=== PATIENT | male | born 1945 | race Caucasian/White ===

== ENCOUNTER 2017-02-15 13:44 | Outpatient (CLI) | payer MEDICARE | END 2017-02-15 13:45 | disposition critical access hospital (66) | LOC: EMS 13:44 | PROVIDERS: ATTEND Surgery | DX: R53.1 Weakness (principal) | CPT/HCPCS: A0425; A0429 ==

== ENCOUNTER 2017-02-15 14:08 | Emergency (ER) | payer MEDICARE ==
[2017-02-15] MEDS ORDERED: SODIUM CHLORIDE 0.9% 1,000 ML IV ONE (14:45)
--- NOTE | 2017-02-15 14:51 | ED Physician Documentation ---
PD HPI ALTERED MENTAL STATUS - Stated complaint Stated Complaint: HUNGRY - Chief complaint Chief Complaint: General - History obtained from History obtained from: Patient, Family, EMS - History of Present Illness Timing - onset: How many months ago (brother says the patient has been living in an RV parked [place] [employer] and getting meals at the [employer] but other lemon has not had water hookup nor septic in the RV. The patient has history of some dementia/ poor selfcare/ poor intake-nutrition. Brother says the patient has lost about 20 lbs in the past 1-2 months. Brother had been talking with [facility] and was set up to have [facility] to the [facility] for an [facility] for assisted living or SNF care, depending on need. The coordinator arrived at patient's RV and the place was in poor condition, with the patient lying in feces, unkempt, and poor conditions. Brother called 911 and patient brought here. Patient seen for similar though not as unkempt, at [facility] 12/31/16 and had labs/CT head/CXR without specific findings. BP was elevated and patient instructed to take usual meds and had new Rx for BP med. Brother says the meds at patient RV are still full, so patient has not been taking his medications.) Timing - duration: Weeks, Months Timing - details: Gradual onset, Waxing and waning Quality / character: Confused. No: Agitated, Combative Associated symptoms: NVD (lots of feces in the RV, so apparently the patient has had some diarrhea/loose stools.), General weakness. No: Fever, Focal weakness Contributing factors: Known dementia (reportedly by brother, though patient still makes own decisions (No POA has been sought by brother).). No: Anticoagulated, Diabetic, Recent med change, Recent illness Basline status: Ambulatory, Disoriented Treatment JUNIOR HIGH MATH TEACHER: Accucheck Similar symptoms before: No diagnosis Recently seen: Emergency Dept (end of December in [facility] ER.) Review of Systems Unable to obtain: Confused, Dementia, Other (some info from brother) Constitutional: reports: Weight Loss. denies: Fever Nose: denies: Rhinorrhea / runny nose, Congestion Throat: denies: Sore throat Cardiac: denies: Chest pain / pressure Respiratory: denies: Cough GI: denies: Abdominal Pain, Vomiting, Diarrhea (but has had a lot of stools recently), Bloody / black stool : denies: Dysuria, Incontinent Skin: denies: Laceration (s) Neurologic: denies: Headache, Head injury Psychiatric: denies: Depressed Endocrine: reports: Weight loss. denies: Easy bruising / bleeding Immunocompromised: denies: Immunocompromised PD PAST MEDICAL HISTORY - Past Medical History Cardiovascular: Hypertension Other Past Medical History: chronic back pain - Past Surgical History Past Surgical History: No - Present Medications Home Medications: Ambulatory Orders Medication Instructions Recorded Confirmed Aspirin Chewable [St Skyler 1 tab PO DAILY 02/15/17 02/15/17 Aspirin] Levothyroxine Sodium [Synthroid] 1 tab PO DAILY 02/15/17 02/15/17 Propranolol HCl 1 tab PO BID 02/15/17 02/15/17 Simvastatin 1 tab PO DAILY 02/15/17 02/15/17 - Allergies Allergies/Adverse Reactions: Allergies Allergy/AdvReac Type Severity Reaction Status Date / Time Unable to Assess Allergy Verified 02/15/17 14:16 - Social History Does the pt smoke?: No Smoking Status: Never smoker Does the pt drink ETOH?: Yes Does the pt have substance abuse?: Yes Substance Use and Type: Marijuana - Family History Family history: reports: Non contributory PD ED PE NORMAL - Vitals Vital signs reviewed: Yes - General General: No acute distress. No: Well developed/nourished (somewhat thin; appears frail; unkempt with long hair/vallecillo and not combed nor washed. Dirty fingernails. ) - HEENT HEENT: Ears normal, Pharynx benign. No: Moist mucous membranes (slightly dry) - Neck Neck: Supple, no meningeal sign, No adenopathy, No JVD - Cardiac Cardiac: RRR, No murmur - Respiratory Respiratory: Clear bilaterally - Abdomen Abdomen: Normal bowel sounds, Soft, Non tender, Non distended - Back Back: No CVA TTP - Derm Derm: Normal color, Warm and dry - Extremities Extremities: Normal ROM s pain, No edema, No calf tenderness / cord - Neuro Neuro: radio installer automobile 2-12 intact, No motor deficit, No sensory deficit. No: Alert and oriented X 3 (oriented to person and place, not time. Poor short term memory. He is not able to describe what he has eaten lately. ) - Psych Psych: Normal mood Results - Vitals Vitals: Vital Signs - 24 hr 02/15/17 02/15/17 02/15/17 14:10 16:06 16:10 Temperature 36.9 C Heart Rate 102 H 88 74 Respiratory 20 18 Rate Blood Pressure 218/116 H 160/82 H 167/89 H O2 Saturation 99 99 Oxygen O2 Source Room air - Labs Labs: Laboratory Tests 02/15/17 02/15/17 02/15/17 15:10 15:10 15:10 WBC 10.9 H RBC 5.81 Hgb 16.6 Hct 48.3 MCV 83.2 MCH 28.5 MCHC 34.3 RDW 13.4 Plt Count 344 MPV 8.2 Neut # 9.4 H Lymph # 0.7 L [place] # 0.7 Eos # 0.0 Baso # 0.0 Absolute Nucleated RBC 0.01 Nucleated RBCs 0.1 Sodium 143 Potassium 3.8 Chloride 99 L Carbon Dioxide 29 Anion Gap 15.0 H BUN 33 H Creatinine 1.0 Estimated GFR (MDRD) 74 L Glucose 137 H Calcium 9.9 Magnesium 2.2 Total Bilirubin 1.9 H AST 24 ALT 23 Alkaline Phosphatase 91 Total Protein 9.1 H Albumin 3.9 Globulin 5.2 H Albumin/Globulin Ratio 0.8 L Lipase 23 Vitamin B12 675 TSH 3.40 Ethyl Alcohol < 5.0 - Rads (name of study) head CT Radiology: Prelim report reviewed (age-related changes without acute process) chest Radiology: Prelim report reviewed (no acute infiltrates/changes. ) PD MEDICAL DECISION MAKING - ED course Complexity details: reviewed old records, re-evaluated patient (The patient is awake and alert and conversant. He does have poor short-term memory and cannot really express how he does his ADLs. He does need assistance with care but does not seem to be in delirium. Basic lab tests as well as chest x-ray and head CT are normal. The ER report from [facility] end of December has similar findings. The blood pressure was elevated here as it was back then and seems likely related to lack of compliance with his medications. [facility] with the [facility] [place] and they were not accepting transfers as they were full on capacity. As such we will need to have the patient stay here in the emergency department presumed to fully until tomorrow when the VA coordinator in the VA system can be better accessed for placement. The patient's brother said he was not set up for bringing the patient home with him for even tonight.), considered differential, d/w patient, d/w family (brother - His brother says he has been in communication with the [facility] outpatient coordinator for the [facility]. She was to take the patient down to the [facility] for evaluation for placement today and other assistance. However because of the weekend apparent state, 911 was called and he came here instead. The brother says the patient has been failing for several months at least and this seems to be the worst he has been with more recent weight loss and incapacity for taking care of himself with meals and grooming and even bathroom skills. The patient apparently needs assistance with placement.) Departure - Departure Clinical Impression: Self-care deficit in patient living alone, Poor compliance with medication Dementia Qualifiers: Dementia type: unspecified type Dementia behavioral disturbance: without behavioral disturbance Qualified Code(s): F03.90 - Unspecified dementia without behavioral disturbance Hypertension Qualifiers: Hypertension type: unspecified secondary hypertension Qualified Code(s): I15.9 - Secondary hypertension, unspecified; I15 - Secondary hypertension Condition: Stable Record reviewed to determine appropriate education?: Yes
[2017-02-15 15:25] LABS: BASOPHILS % (AUTO) 0.4 %; EOSINOPHILS % (AUTO) 0.2 %; HCT - HEMATOCRIT 48.3 % (42.0-52.0); HGB - HEMOGLOBIN 16.6 g/dL (14.0-18.0); LYMPHOCYTES # (AUTO) 0.7 10^3/uL (1.5-3.5); LYMPHOCYTES % (AUTO) 6.4 %; MEAN CORPUSCULAR HEMOGLOBIN 28.5 pg (27.0-31.0); MEAN CORPUSCULAR HGB CONC 34.3 g/dL (32.0-36.0); MEAN CORPUSCULAR VOLUME 83.2 fL (80.0-94.0); MEAN PLATELET VOLUME 8.2 fL (7.4-11.4); MONOCYTES # (AUTO) 0.7 10^3/uL (0.0-1.0); MONOCYTES % (AUTO) 6.1 %; NEUTROPHILS # (AUTO) 9.4 10^3/uL (1.5-6.6); NEUTROPHILS % (AUTO) 86.9 %; NUCLEATED RED BLOOD CELLS AUTO 0.1 /100WBC; RED BLOOD COUNT 5.81 10^6/uL (4.70-6.10); RED CELL DISTRIBUTION WIDTH 13.4 % (12.0-15.0); UNCORRECTED WHITE BLOOD COUNT 10.9 x10^3/uL; WHITE BLOOD COUNT 10.9 x10^3/uL (4.8-10.8)
[2017-02-15 15:41] LABS: ALBUMIN/GLOBULIN RATIO 0.8 (1.0-2.2); BILIRUBIN,TOTAL 1.9 mg/dL (0.2-1.0); BUN - BLOOD UREA NITROGEN 33 mg/dL (6-20); CALCIUM 9.9 mg/dL (8.5-10.3); CARBON DIOXIDE - CO2 29 mmol/L (21-32); CHLORIDE 99 mmol/L (101-111); GFR - MDRD 74 (>89); GLUCOSE 137 mg/dL (70-100); LIPASE 23 U/L (22-51); MAGNESIUM 2.2 mg/dL (1.7-2.8); POTASSIUM 3.8 mmol/L (3.5-5.0); SODIUM 143 mmol/L (135-145); TOTAL PROTEIN 9.1 g/dL (6.7-8.2)
[2017-02-15] MEDS ORDERED: METOPROLOL 5 MG/5 ML VIAL IVP STA (15:49)
--- NOTE | 2017-02-15 15:58 | CT Preliminary Report ---
Exam: CT Head W/O IMPRESSION: Generalized age-related cortical atrophic changes without evidence of acute intracranial abnormality. [facility] SITE ID: [id number]
--- NOTE | 2017-02-15 16:04 | XRAY Preliminary Report ---
Exam: XR Chest 1 View IMPRESSION: Normal single view chest. [facility] SITE ID: [id number]
[2017-02-15] MEDS: SODIUM CHLORIDE 0.9% 1,000 ML IV ONE ×2 (16:06→16:57)
--- NOTE | 2017-02-15 16:06 | CT Report ---
EXAM: CT HEAD EXAM DATE: 02/15/2017 03:29 PM. CLINICAL HISTORY: Confusion/weakness. COMPARISON: None. TECHNIQUE: Multiaxial CT images were obtained from the foramen magnum to the vertex. IV contrast: Non e. Reformats: Coronal. In accordance with CT protocol optimization, one or more of the following dose reduction techniques w ere utilized for this exam: automated exposure control, adjustment of mA and/or KV based on patient s ize, or use of iterative reconstructive technique. FINDINGS: Parenchyma: No intraparenchymal hemorrhage. No evidence of mass, midline shift, or CT findings of acu te infarction. Mccormack-white differentiation is distinct. Extraaxial Spaces: Normal for age. No subdural or epidural collections identified. Ventricles: The ventricles and cortical sulci are enlarged, consistent with age-related tissue loss. Sinuses: Imaged paranasal sinuses, orbits, and mastoids show no significant abnormality. Bones: No evidence of fracture or calvarial defect. Other: Diffuse chronic microangiopathic white matter changes are evident. IMPRESSION: Generalized age-related cortical atrophic changes without evidence of acute intracranial abnormality. [facility] Referring Provider Line: [phone] SITE ID: [id number]
--- NOTE | 2017-02-15 16:07 | XRAY Report ---
EXAM: CHEST RADIOGRAPHY EXAM DATE: 02/15/2017 03:32 p.m. CLINICAL HISTORY: Weakness. Confusion. COMPARISON: None. TECHNIQUE: 1 view. FINDINGS: Lungs/Pleura: No focal opacities evident. No pleural effusion. No pneumothorax. Mediastinum: Within exam limitations, cardiomediastinal contour is normal. Other: None. IMPRESSION: Normal single-view chest. [facility] Referring Provider Line: [phone] SITE ID: [id number]
[2017-02-15 16:14] LABS: THYROID STIMULATING HORMONE 3.4 uIU/mL (0.34-5.60)
[2017-02-15] MEDS ORDERED: ASPIRIN EC 81 MG TABLET PO STA (19:39)
[2017-02-15] MEDS ORDERED: ASPIRIN CHEW 81 MG TABLET ONE (19:54)
[2017-02-15] MEDS ORDERED: ASPIRIN CHEW 81 MG TABLET PO STA (19:57)
[2017-02-15] MEDS: PROPRANOLOL 10 MG TABLET PO SCH (21:08)
[2017-02-16 15:19] LABS: BILIRUBIN,URINE NEGATIVE (NEGATIVE); UA CHARGE (STRIP ONLY) YES; UR CULTURE IF IND NOT INDICATED
--- NOTE | 2017-02-16 15:19 | ED Physician Documentation ---
ED Addendum - Addendum Addendum: 02/16/17 15:17 Patient rested reportedly well through the night. The patient was doing okay this morning without complaints. He got his usual morning medications with blood pressure medicine. supervisor esters and emulsifiers in our hospital came to see the patient and talked with the [facility] outpatient coordinator for the area. They suggested calling [facility] see if there is bed availability. However the nursing street light servicer supervisor at the [facility] said there are no beds available. As such whenever assistant case manager was working with the [facility] to see if there is any other placement options for the patient. At this point there is still in progress working on that. The patient did not have any particular complaints here. He ate well.
--- NOTE | 2017-02-16 18:58 | ED Physician Documentation ---
ED Addendum - Addendum Addendum: 02/16/17 18:51 Assessed by Meter Installer TAVON, who tried to get placement for the patient. Was not really given guidance from [facility] per se. There is likely placement for patient tomorrow AM at [facility], and one of their staff will come in AM to assess the patient. At this point, then, is boarding another night. We encouraged hydration through the day, given meals.
[2017-02-16] MEDS: PROPRANOLOL 10 MG TABLET PO SCH (21:04)
--- NOTE | 2017-02-17 12:16 | ED Physician Documentation ---
History of Present Illness - Stated complaint Stated Complaint: HUNGRY - Chief complaint Chief Complaint: General PD PAST MEDICAL HISTORY - Past Medical History Cardiovascular: Hypertension Other Past Medical History: chronic back pain - Past Surgical History Past Surgical History: No - Present Medications Home Medications: Ambulatory Orders Medication Instructions Recorded Confirmed Aspirin Chewable [St Skyler 1 tab PO DAILY 02/15/17 02/15/17 Aspirin] Levothyroxine Sodium [Synthroid] 1 tab PO DAILY 02/15/17 02/15/17 Propranolol HCl 1 tab PO BID 02/15/17 02/15/17 Simvastatin 1 tab PO DAILY 02/15/17 02/15/17 - Allergies Allergies/Adverse Reactions: Allergies Allergy/AdvReac Type Severity Reaction Status Date / Time No Known Drug Allergies Allergy Verified 02/15/17 19:40 - Social History Does the pt smoke?: No Smoking Status: Never smoker Does the pt drink ETOH?: Yes Does the pt have substance abuse?: Yes Substance Use and Type: Marijuana Results - Vitals Vitals: Oxygen O2 Source Room air - Labs Labs: Microbiology 02/15/17 19:06 Campylobacter Antigen Assay - Final Stool Stool Culture - Final NO SALMONELLA, SHIGELLA, E. COLI 0157, AEROMONAS, EDWARDSIELLA, PLESIOMONAS, YERSINIA, OR VIBRIO ISOLATED. NO SHIGA TOXIN 1 OR 2 DETECTED. 02/15/17 19:06 Clostridium difficile (PCR) - Final Stool Laboratory Tests 02/15/17 02/15/17 02/15/17 15:10 15:10 15:10 WBC 10.9 H RBC 5.81 Hgb 16.6 Hct 48.3 MCV 83.2 MCH 28.5 MCHC 34.3 RDW 13.4 Plt Count 344 MPV 8.2 Neut # 9.4 H Lymph # 0.7 L [place] # 0.7 Eos # 0.0 Baso # 0.0 Absolute Nucleated RBC 0.01 Nucleated RBCs 0.1 Sodium 143 Potassium 3.8 Chloride 99 L Carbon Dioxide 29 Anion Gap 15.0 H BUN 33 H Creatinine 1.0 Estimated GFR (MDRD) 74 L Glucose 137 H Calcium 9.9 Magnesium 2.2 Total Bilirubin 1.9 H AST 24 ALT 23 Alkaline Phosphatase 91 Total Protein 9.1 H Albumin 3.9 Globulin 5.2 H Albumin/Globulin Ratio 0.8 L Lipase 23 Vitamin B12 675 TSH 3.40 Urine Color Urine Clarity Urine pH Ur Specific [place] Urine Protein Urine Glucose (UA) Urine Ketones Urine Occult Blood Urine Nitrite Urine Bilirubin Urine Urobilinogen Ur Leukocyte Esterase Ur Microscopic Review Urine Culture Comments Ethyl Alcohol < 5.0 T.pallidum IgG (EIA) 02/15/17 02/16/17 15:10 15:05 WBC RBC Hgb Hct MCV MCH MCHC RDW Plt Count MPV Neut # Lymph # [place] # Eos # Baso # Absolute Nucleated RBC Nucleated RBCs Sodium Potassium Chloride Carbon Dioxide Anion Gap BUN Creatinine Estimated GFR (MDRD) Glucose Calcium Magnesium Total Bilirubin AST ALT Alkaline Phosphatase Total Protein Albumin Globulin Albumin/Globulin Ratio Lipase Vitamin B12 TSH Urine Color DK. ORANGE Urine Clarity CLEAR Urine pH 6.0 Ur Specific [place] 1.025 Urine Protein TRACE Urine Glucose (UA) NEGATIVE Urine Ketones NEGATIVE Urine Occult Blood NEGATIVE Urine Nitrite NEGATIVE Urine Bilirubin NEGATIVE Urine Urobilinogen 2 H Ur Leukocyte Esterase NEGATIVE Ur Microscopic Review NOT INDICATED Urine Culture Comments NOT INDICATED Ethyl Alcohol T.pallidum IgG (EIA) NEGATIVE PD MEDICAL DECISION MAKING - ED course Complexity details: re-evaluated patient, d/w patient, d/w family ED course: The patient's care was turned over to co at change of shift pending placement for dementia care. The patient is a better in, but the [place] currently has noavailable. The director of medical staff services was able to arrange for placement at [facility] pending dementia evaluation at the [facility]. He remained calm and cooperative throughout the rest of his time in the emergency department. He is discharged in the care of his brother who will transport him to [facility]. Departure - Departure Disposition: 01 Home, Self Care Clinical Impression: Self-care deficit in patient living alone, Poor compliance with medication Dementia Qualifiers: Dementia type: unspecified type Dementia behavioral disturbance: without behavioral disturbance Qualified Code(s): F03.90 - Unspecified dementia without behavioral disturbance Hypertension Qualifiers: Hypertension type: unspecified secondary hypertension Qualified Code(s): I15.9 - Secondary hypertension, unspecified Condition: Stable Instructions: ED Dementia Caregiver Support Discharge Date/Time: 02/17/17 12:35
[2017-02-17 12:17] VITALS: BP 150/88
== END 2017-02-17 12:35 | disposition home or self-care (01) ==
LOC: EDUNIT# → EDBD → ED 14:08
DX: F03.90 Unspecified dementia, unspecified severity, without behavioral disturbance, psychotic disturbance, mood disturbance, and anxiety (principal); I15.9 Secondary hypertension, unspecified; T50.996A Underdosing of other drugs, medicaments and biological substances, initial encounter; Z91.138 Patient's unintentional underdosing of medication regimen for other reason; Y92.029 Unspecified place in mobile home as the place of occurrence of the external cause; Z79.82 Long term (current) use of aspirin
CPT/HCPCS: 36415; 70450; 71010; 80053; 81003; 82607; 83690; 83735; 84443; 85025; 86780; 87045; 87046; 87077; 87493; 96374; 99284; 99285; A9270; G0480; 80320; 81001; 87086

== ENCOUNTER 2017-11-24 11:45 | Outpatient (CLI) | payer MEDICARE, MEDICAID ==
--- NOTE | 2017-11-28 19:57 | CONSULTATION NOTE ---
Palliative Care Consultation - Referral Referring Provider: Heidy Amor MD Time of Visit: 11/24/2017. 11:45 - 12:30 Referral setting: Adult Family Home (Seen in home setting due to taxing and considerable effort required to leave the home due to decreasing mobility secondary to advancing dementia.) Referral Reason: Advanced dementia - Information Sources Records reviewed: Previous records reviewed History/Review of Systems obtained from: Patient, Caregiver Exam limitations: Clinical condition (advancing dementia; mostly non-verbal) - History of Present Illness Brief History of Present Illness: Thank you, Dr Heidy Amor, for asking the palliative care consult service to be involved in the care of your patient. I am asked to provide support regarding symptom management and goals of care. 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 -Medical history: Dementia, likely combination Alzheimers and vascular; vit D deficiency, sleep apnea, allergic rhinitis, h/o abnormal liver function tests, hypothyroidism, PTSD, depression, BPH, HLD, allergic rhinitis, personal h/o colonic polyps; family h/o malignant neoplasm of GI tract. -He had been living in a camper in extremely poor living conditions. 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 -He has a history of heavy alcohol abuse. -Last February his brother, Zhou, found him unresponsive in his camper, lying in feces, unkept. The place smelled of cat urine, cluttered with trash and soiled briefs, and his medicine containers were full -- he was not taking medications. -His brother took him to [facility] ED. Eventually he was relocated to [facility] [place], where he has lived since February 2017. -The caregiver at [facility] has noted a marked decline since he has lived at [facility]: decline in cognitive ability, significant short-term memory deficits, requires more help with ADLs, sleeps excessively (16-18 hours), decreasing mobility although he continues to be ambulatory without use of walker or cane. -He is still able to self-transfer from chair to standing, but finds it more difficult to ambulate and as a result his incontinence is increasing, mostly from functional origins. -He has a slow careful gait, favoring his L lower extremity, and a cane could be useful, if he were able to remember to use it or how to use it. -He is mostly non-verbal, able to speak 1-3 words, can grasp simple sentences and questions, is cooperative and pleasant, and appears very sweet tempered as his caregiver describes him. -On 11/17/17 his brother Zhou took him to the ED off [facility] for increased left-sided weakness, concerned that it was a CVA. Tests were negative. -Information obtained from patient, caregiver, and EMR chart notes from [facility]. Medical/Surgical History - Past Medical History Cardiovascular: reports: Hypertension, High cholesterol Respiratory: reports: Sleep apnea Neuro: reports: Dementia Endocrine/Autoimmune: reports: HyPOthyroidism GI: reports: Colon polyps, Hemorrhoids, Other (Incontinent of bowel, episodic) : reports: Benign prostate hypertrophy, Incontinence Psych: reports: Depression, Post traumatic stress disorder Musculoskeletal: reports: Chronic back pain - Substance History Dependence: Experiences withdrawal or developed tolerances: Alcohol (h/o heavy alcohol abuse) Tobacco Details: Cigarettes (Former smoker) Social History - Living Situation Living arrangement: Adult family home ([facility]) Living Situation: With caregiver(s) Support System: His brother, Zhou, lives in [place]. He also has a sister, Rin Camacho, in [place]. Patient was in the [place] 11 years in the [place]. He has been living at [facility] since Feb 2017.Brother Zhou, lives in [facility] Family History - Family History Family History Comment/Other: Father age 62, alcohol abuse. Mother age 91 in 2017, colon cancer and larynx cancer. Medications/Allergies - Medications Home Medications: Ambulatory Orders Medication Instructions Recorded Confirmed Aspirin Chewable [[facility] Skyler 1 tab PO DAILY 02/15/17 11/28/17 Aspirin] Acetaminophen 80 mg PO Q6H PRN 11/28/17 11/28/17 Atorvastatin Calcium 80 mg PO 11/28/17 Cholecalciferol (Vitamin D3) 2,000 unit PO DAILY 11/28/17 11/28/17 [Vitamin D] Guaifenesin [Tussin] 10 ml PO Q4H PRN 11/28/17 11/28/17 Lisinopril/Hydrochlorothiazide 1 tab PO DAILY 11/28/17 11/28/17 [Lisinopril-Hctz 10-12.5 mg Tab] Loperamide [Imodium] 1 ea PO PRN PRN MDD 8 tabs max in 11/28/17 11/28/17 24 hrs Vitamin B Complex 1 each PO DAILY 11/28/17 11/28/17 - Allergies Allergies/Adverse Reactions: Allergies Allergy/AdvReac Type Severity Reaction Status Date / Time No Known Drug Allergies Allergy Verified 02/15/17 19:40 Review of Systems - Constitutional Constitutional: reports: Weight stable. denies: Poor appetite - Ears, Nose & Throat Ears, Nose & Throat: reports: Hearing loss - Cardiovascular Cardiovascular: reports: Decr. exercise tolerance. denies: Edema - Respiratory Respiratory: denies: SOB at rest, SOB with exertion - Gastrointestinal Gastrointestinal: reports: Other (loose stools daily). denies: Poor appetite - Genitourinary Genitourinary: reports: Frequency (5x/day), Incontinence - Musculoskeletal Musculoskeletal: reports: Back pain (chronic, but denies pain), Stiffness, Joint pain (L knee is "bone on bone"). denies: Assistive devices (Doesn't use walker or w/c. Could benefit from using a cane.) - Neurological Neurological: reports: Memory problems (significant short-term memory deficits) - Psychiatric Psychiatric: reports: Depression Physical Exam - Vital Signs Temperature: 96.2 F Pulse Rate: 69 O2 Saturation: 96 (room air) Blood Pressure: 157/92 - Physical Exam General Appearance: positive: No acute distress, Alert, Other (Does make eye contact) Eyes Bilateral: positive: EOMI, No lid inflammation, Conjunctivae nml, No scleral icterus ENT: positive: No signs of dehydration Neck: positive: No JVD, Trachea midline Cardiovascular: positive: Regular rate & rhythm, No murmur, No gallop Respiratory: positive: No respiratory distress, Breath sounds nml. negative: Rales Abdomen: positive: Non-tender, Nml bowel sounds, Taut Skin: positive: No symptoms Neurologic/Psychiatric: positive: Disoriented to place, Disoriented to time, Flat affect, Other (Mostly non-verbal. Answers questions with difficulty, 1-3 word replies) Palliative Care - POLST Patient has POLST: Yes POLST Status: Comfort Measures, Selective Treatment Pain: Comment (No complaints of pain, but he is on disability for PTSD and lumbosacral or cervical strain (10%)) Drowsiness/Sedation: None Anorexia: None Sleep: Other (excessive sleeping 16-18 hrs/day) Constipation: No, Comment (usually has loose stools) Performance Status: -increased need for help with ADLs, increased L knee pain (though he denies pain during this assessment) -decreased mobility, favors his L lower extremity, -increased sleep (16-18 hrs/day), -decreased cognition, mainly non-verbal but able to respond with 1-4 words to questions -slow processing of verbal input and output. - Palliative Care Discussion: His POLST was signed 02.02.17 at the [facility], with Heidy Amor MD, and the patient. 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 We reviewed these goals as best we could given his nearly non-verbal status, and the patient indicates that he wants both CPR/intubation and comfort care. He does not have full capacity of decision making. I have left a message with his brother, who is his DPOA, and will discuss this further with him. Impression and Recommendations - Palliative Care Impression: This is a quiet, [id number] 72-year gentleman with advancing Alzheimers , whose functionality has declined as his dementia has advanced. His brother found him non-responsive when he was living independently and in extremely unsafe conditions in his camper [facility]. He was [facility] in to [facility] in Feb 2017 and has declined in functionality, cognition and mobility since then. He was just taken to the ED off [address] last week for increased L side weakness; tests for CVA came back negative. Goals of care are comfort in the marine oil terminal superintendent, although patient has expressed that he wants CPR and intubation if needed. He would benefit from palliative care monitoring and support. Recommendations/Counseling Done: Dementia, combination Alzheimers and vascular: Worsening cognition and short- term memory deficits, increased sleeping (16-18 hours). FAST scale 7a. No behaviors. HTN: BP today elevated 157/92, may be "white coat" related. On Hctz/Lisinopril 12.5/10mg daily. HLD: Just at ED (off [address]) last week for L side weakness; assessed for CVA, diagnostics negative. Continue aspirin 81mg daily and atorvastatin 80mg ( increased on 11/18 from 20mg daily). Pain: Denies pain, but favors left knee when he walks. Acetaminophen 650mg q6h as needed for pain. Recommend adult family home start a trial of using a cane while ambulating. They have several spare ones available. Patient has significant short-term memory deficits, will need consistent prompting and education on usage. Advanced care planning: [facility] is CPR (full code) with comfort care, an unusual combination. Patient indicates he wants CPR with comfort care for longer term. His dementia is advanced such that he is not capable of making his own decisions or expanding on his thought process or his goals. Follow up with brother/DPOA on goals of care. Left message after visit. Follow up with brother. Next visit in 4-6 weeks, and if stable, then every 6- 12 weeks. Time Spent: 45 minutes were spent with more than 50% of the time spent on counseling, education, and coordination of care.
== END 2017-11-24 11:46 | disposition home or self-care (01) ==
LOC: PC 11:45
PROVIDERS: ATTEND Nurse Practitioner
DX: Z51.5 Encounter for palliative care (principal); G30.9 Alzheimer's disease, unspecified; F02.80 Dementia in other diseases classified elsewhere, unspecified severity, without behavioral disturbance, psychotic disturbance, mood disturbance, and anxiety; R53.1 Weakness; R26.2 Difficulty in walking, not elsewhere classified; I10 Essential (primary) hypertension; N40.1 Benign prostatic hyperplasia with lower urinary tract symptoms; N39.498 Other specified urinary incontinence; R35.0 Frequency of micturition; F01.50 Vascular dementia, unspecified severity, without behavioral disturbance, psychotic disturbance, mood disturbance, and anxiety; E78.5 Hyperlipidemia, unspecified; F10.11 Alcohol abuse, in remission; Z87.891 Personal history of nicotine dependence; Z79.899 Other long term (current) drug therapy